=== PATIENT | female | born 1990 | race Caucasian/White ===

== ENCOUNTER 2017-09-18 11:44 | Emergency (ER) | payer OTHER, SELFPAY | END 2017-09-18 13:29 | disposition home or self-care (01) | LOC: ERS 11:44 | DX: K02.9 Dental caries, unspecified (principal); F17.210 Nicotine dependence, cigarettes, uncomplicated | CPT/HCPCS: 99282 ==

== ENCOUNTER 2024-01-25 08:49 | Emergency (ER) | payer SELFPAY ==
[2024-01-25] MEDS ORDERED: Ketorolac Tromethamine 30 MG (1 mL) VIAL ONE (09:14)
== END 2024-01-25 09:48 | disposition home or self-care (01) ==
LOC: ERS 08:49
DX: S02.5XXA Fracture of tooth (traumatic), initial encounter for closed fracture (principal); K02.9 Dental caries, unspecified; F17.210 Nicotine dependence, cigarettes, uncomplicated; F17.290 Nicotine dependence, other tobacco product, uncomplicated; X58.XXXA Exposure to other specified factors, initial encounter
CPT/HCPCS: 96372; 99282; J1885